=== PATIENT | female | born 1970 | race Two or more races ===

== ENCOUNTER 2024-05-16 16:42 | Emergency (ER) | payer OTHER ==
[~2024-05-16] VITALS: Ht 177.8 cm; Wt 65.3 kg
--- NOTE | 2024-05-16 16:52 | ED.PDOC ---
Noy. trauma (HPI) HPI Comments 53 y.o female presents to the ED for a chief complaint of right sided head pain associated with right eye ecchymosis, right shoulder abrasion, right knee pain s/p fall one day ago. Patient reports feeling dizzy, lost her balance, and fell to the right side. Patient did end up losing consciousness, unknown how long and unknown if there were any witnesses. Patient denies any dizziness now and also denies any blood thinner use. Time Seen by MD: 16:45 Reviewed notes: Nurses Notes, Medications, Allergies Information Source: Patient Mode of Arrival: Ambulatory Severity: Moderate Timing: Days (1) Duration: Since onset Location: Eye, Head Mechanism: Fall Associated signs and symtoms: Other Past Medical History PAST MEDICAL HISTORY: Denies Surgical History: Denies all surgeries FUEL QUALITY TECH History: No Pertinent FUEL QUALITY TECH History Family History Family History: Reviewed,noncontributory to illness Social History Smoker: Non-Smoker Alcohol: Denies ETOH Use Drugs: Denies Drug Use Lives In: Home Constitutional: denies: chills, diaphoresis, fatigue, fever, malaise, sweats, weakness, others EENTM: denies: blurred vision, double vision, ear bleeding, ear discharge, ear drainage, ear pain, ear ringing, eye pain, eye redness, hearing loss, mouth pain, mouth swelling, nasal discharge, nose bleeding, nose congestion, nose pain, photophobia, tearing, throat pain, throat swelling, voice changes, others Respiratory: denies: cough, hemoptysis, orthopnea, SOB at rest, shortness of breath, SOB with excertion, stridor, wheezing, others Cardiovascular: denies: chest pain, dizzy spells, diaphoresis, Dyspnea on exertion, edema, irregular heart beat, left arm pain, lightheadedness, palpitations, PND, syncope, others Gastrointestinal: denies: abdomen distended, abdominal pain, blood streaked bowels, constipated, diarrhea, dysphagia, difficulty swallowing, hematemesis, melena, nausea, poor appetite, poor fluid intake, rectal bleeding, rectal pain, vomiting, others Genitourinary: denies: abnormal vagina bleeding, burning, dyspareunia, dysuria, flank pain, frequency, hematuria, incontinence, pain, , vagina discharge, urgency, others Neurological: reports: headache; denies: dizziness, fainting, left sided numbness, left sided weakness, numbness, paresthesia, pre-existing deficit, right sided numbness, right sided weakness, seizure, speech problems, tingling, tremors, weakness, others Musculoskeletal: denies: back pain, gout, joint pain, joint swelling, muscle pain, muscle stiffness, neck pain, others Integumetry: reports: bruises (right eye ), others (right eye hematoma ); denies: change in color, change in hair/nails, dryness, laceration, lesions, lumps, rash, wounds Allergic/Immunocompromised: denies: Difficulty Healing, Frequent Infections, Hives, Itching, others Hematologic/Lymphatic: denies: anemia, blood clots, easy bleeding, easy bruising, swollen glands, others Endocrine: denies: excessive hunger, excessive sweating, excessive thirst, excessive urination, flushing, intolerance to cold, intolerance to heat, unexplained weight gain, unexplained weight loss, others Psychiatric: denies: anxiety, bipolar disorder, depression, hopeless, panic disorder, schizophrenia, sleepless, suicidal, others All Other Systems: Reviewed and Negative Physical Exam General Appearance: No Apparent Distress, Normal HEENT: Normal ENT Inspection, Pharynx Normal, TMs Normal Neck: Full Range of Motion, Non-Tender, Normal, Normal Inspection Respiratory: Chest Non-Tender, Lungs Clear, No Accessory Muscle Use, No Respiratory Distress, Normal Breath Sounds Cardiovascular: No Edema, No JVD, No Murmur, No Gallop, Normal Peripheral Pulses, Regular Rate/Rhythm Breast Exam: Deferred Gastrointestinal: No Organomegaly, Non Tender, No Pulsatile Mass, Normal Bowel Sounds, Soft Genitalia: Deferred Pelvic: Deferred Rectal: Deferred Extremities: No calf tenderness, Normal capillary refill, Normal inspection, Normal range of motion, Non-tender, No pedal edema Musculoskeletal : Apperance: Normal Neurologic: Alert, electronics engineering technician II-XII nml as Tested, No Motor Deficits, Normal Affect, Normal Mood, No Sensory Deficits Cerebellar Function: Normal Reflexes: Normal Skin: Bruises (periorbital ecchymosis right eye ), Other (right shoulder abrasion ) Lymphatic: No Adenopathy Was a procedure done? Was a procedure done?: No Differential Diagnosis Multiple Trauma: Closed Head Injury, Fractures, Cerebral Contusion, Abrasions, Contusion, Hematoma, Other (syncope, cardiac arrythmias, fractures, intracranial lbleed. intracranial mass, dislocation, sprain, strain) Neck Injury: Cervical Muscle Spasm X-Ray, Labs, Meds, VS Vital Signs Date Time Temp Pulse Resp B/P (MAP) Pulse Ox O2 Delivery O2 Flow Rate FiO2 05/16/24 16:55 73 05/16/24 16:48 97.9 90 16 137/79 (98) 98 Lab Test 05/16/24 18:15 05/16/24 17:26 05/16/24 16:57 Range/Units Urine Color Light-yellow Yellow Urine Clarity Clear Clear Urine pH 5.5 5.0-9.0 Urine Specific [place] 1.023 1.001-1.035 Urine Protein Negative Negative Urine Ketones Negative Negative Urine Blood Negative Negative /uL Urine Nitrite Negative Negative Urine Bilirubin Negative Negative Urine Urobilinogen Normal Negative mg/dL Urine Leukocyte Esterase Negative Negative /uL Urine RBC 1 0 - 4 /hpf Urine WBC <1 0 - 5 /hpf Urine Squamous Epithelial Cells Few <5 /hpf Urine Bacteria Few H None Seen /hpf Urine Mucus Few None Seen Urine Glucose Normal Normal mg/dL White Blood Count 9.2 4.4-10.8 10^3/uL Red Blood Count 4.70 4.0-5.20 10^6/uL Hemoglobin 13.5 12.2-16.2 g/dL Hematocrit 40.5 36.0-46.0 % Mean Corpuscular Volume 86.0 80.0-100.0 fL Mean Corpuscular Hemoglobin 28.8 28.0-32.0 pg Mean Corpuscular Hemoglobin Concent 33.5 32.0-36.0 g/dL Red Cell Distribution Width 13.4 11.8-14.3 % Platelet Count 291 140-450 10^3/uL Mean Platelet Volume 7.5 6.9-10.8 fL Neutrophils (%) (Auto) 54.5 37.0-80.0 % Lymphocytes (%) (Auto) 37.7 10.0-50.0 % Monocytes (%) (Auto) 6.3 0.0-12.0 % Eosinophils (%) (Auto) 1.4 0.0-7.0 % Basophils (%) (Auto) 0.1 0.0-2.0 % Neutrophils # (Auto) 5.0 1.6-8.6 10 ^3/uL Lymphocytes # (Auto) 3.5 0.4-5.4 10 ^3/uL Monocytes # (Auto) 0.6 0-1.3 10 ^3/uL Eosinophils # (Auto) 0.1 0-0.8 10 ^3/uL Basophils # (Auto) 0 0-0.2 10 ^3/uL Nucleated Red Blood Cells 0.0 % Sodium Level 140 136-145 mmol/L Potassium Level 4.2 3.5-5.1 mmol/L Chloride Level 105 98-107 mmol/L Carbon Dioxide Level 27 20-31 mmol/L Anion Gap 8 5-15 Blood Urea Nitrogen 15 9-23 mg/dL Creatinine 0.82 0.550-1.02 mg/dL Glomerular Filtration Rate Calc 86 >90 mL/min BUN/Creatinine Ratio 18.3 10.0-20.0 Serum Glucose 92 74-106 mg/dL Calcium Level 10.3 8.7-10.4 mg/dL Troponin I High Sensitivity < 3 L </=34 ng/L POC Glucose 106 70-106 mg/dl Time of 1ST Reevaluation: 17:30 Reevaluation 1ST: Improved Time of 2ND Reevaluation: 19:09 Reevaluation 2ND: Improved Patient Education/Counseling: Diagnosis, Treatment, Prognosis, Need For Follow Up Family Education/Counseling: No Family Present Additional Information Ordered Test: LAB, EKG, UA, CXR, Right shoulder X ray, and CT Head WO CON Reviewed Result: Lab including Troponin, CBC, BMP Interpreted results: CXR,Cervical/Spine X ray, Right shoulder X ray, and CT Head WO CON- Agreed with radiology Discuss tx/ results: Patient and medical personnel CXR: IMPRESSION: agree with radiology No acute cardiopulmonary disease. Right shoulder X ray: FINDINGS/IMPRESSION: agree with radiology There is no evidence of acute fracture or dislocation. The visualized joint space is well maintained. The alignment is anatomical. There is no radiopaque foreign body. Cervical/Spine X ray: FINDINGS/IMPRESSION: agree with radiology 7 [id number] cervical type vertebra. Normal alignment of the cervical spine. The vertebral body heights are maintained. Limited evaluation of the dens on the odontoid view due to overlying structures. Otherwise, no evidence of acute traumatic fractures or spondylolisthesis. If symptoms persist, consider CT/ MRI for further evaluation. CT Head WO CON agree with radiology IMPRESSION: No acute intracranial findings. Right periorbital soft tissue swelling partially imaged. Please correlate with clinical exam. although pt did not suffer any serious injuries, i am concerned about the cause of the syncope. cardiac arrhythmias being of the most likely differential. i recommended to pt to be admitted, however, pt declined. she is a reliable patient and will follow up with her pcp Departure 1 Departure Time of Disposition: 19:06 Impression: Primary Impression: Syncope Qualified Codes: R55 - Syncope and collapse Additional Impressions: Shoulder contusion Qualified Codes: S40.011A - Contusion of right shoulder, initial encounter Periorbital contusion of right eye Qualified Codes: S05.11XA - Contusion of eyeball and orbital tissues, right eye, initial encounter Scalp contusion Qualified Codes: S00.03XA - Contusion of scalp, initial encounter Disposition: HOME / SELF CARE / HOMELESS Condition: Stable Discharged With: Self Critical Care Note Critical Care Time?: Yes (45 min-critical care time only) Critical care comment: due to the likelihood of patients condition suddenly deteriorating, the care requires my highest level of attention, readiness to intervene. my critical care include assessing and reassessing of patient's condition, response to treatm ents, ordering the appropriate tests, reviewing the results, ordering of treatments, discussing the care with medical personnel and consultants, and formulating a treatment plan, as well a reviewing various medical records. this include at least 50% face-face interaction, and does not include any procedures Stability Stability form required: No I personally scribed for ANGELINA RAMSEY MD ([facility]) on 05/16/24 at 16:52. Electronically submitted by Priya Harden ([employer]). I personally scribed for ANGELINA RAMSEY MD ([facility]) on 05/16/24 at 17:55. Electronically submitted by Priya Harden ([employer]). ANGELINA RAMSEY MD May 16, 2024 16:52
--- NOTE | 2024-05-16 16:57 | ECG ---
[facility] Test Date: 2024-05-16 Test Time: 16:55:13 Pat Name: CHASTITY BRYAN Department: ER Room: Gender: F Machine Icer: CARLOZ : 1970 Requested By: ANGELINA RAMSEY Order Number: [id number] Reading MD: Arcadio Valencia Measurements Intervals [place] Rate: 73 P: 76 GA: 158 QRS: 3 QRSD: 101 T: 35 QT: 365 QTc: 403 Interpretive Statements Sinus rhythm Probable left atrial enlargement RSR' in V1 or V2, right VCD or RVH Baseline wander in lead(s) V1 Electronically Signed On 05-21-2024 16:08:42 PST by Arcadio Valencia Please click the below link to view image of tracing.
--- NOTE | 2024-05-16 17:26 | DVH ---
CT BRAIN WITHOUT CONTRAST HISTORY: injury TECHNIQUE: Axial scans were obtained from the skull base through the vertex without contrast. [place] l and coronal reformats were generated. One or more of the following radiation dose reduction techniq ues were used for this examination: automated exposure control, adjustment of the mA and/or kV accord ing to patient size, use of iterative reconstruction technique. COMPARISON: None FINDINGS: No acute intracranial hemorrhage or evidence of large vessel territorial infarction identified at thi s time. No midline shift. The basilar cisterns are patent. Enrique-white differentiation appears relati vely preserved. Question right periorbital soft tissue swelling partially imaged. The visualized paranasal sinuses an d mastoid air cells are clear. No grossly displaced calvarial fracture is identified. IMPRESSION: No acute intracranial findings. Right periorbital soft tissue swelling partially imaged. Please correlate with clinical exam.
--- NOTE | 2024-05-16 17:35 | DVH ---
CHEST RADIOGRAPH Indication: syncope Technique: Single frontal view of the chest was obtained Comparison: None FINDINGS: Lines and Tubes: None Lungs: No focal consolidation. Pleura: No effusion. No pneumothorax. Cardiomediastinal contours: Unremarkable Bones: No acute osseous abnormality. IMPRESSION: No acute cardiopulmonary disease.
--- NOTE | 2024-05-16 17:36 | DVH ---
CLINICAL INDICATION: injury TECHNIQUE: 3 radiographic views of the right shoulder were obtained. Comparison: None FINDINGS/IMPRESSION: There is no evidence of acute fracture or dislocation. The visualized joint space is well maintained. The alignment is anatomical. There is no radiopaque foreign body.
--- NOTE | 2024-05-16 17:40 | DVH ---
CLINICAL INDICATION: injury TECHNIQUE: 3 radiographic views of the cervical spine were obtained. Comparison: None FINDINGS/IMPRESSION: 7 [id number] cervical type vertebra. Normal alignment of the cervical spine. The vertebral bod y heights are maintained. Limited evaluation of the dens on the odontoid view due to overlying struc tures. Otherwise, no evidence of acute traumatic fractures or spondylolisthesis. If symptoms persis t, consider CT/ MRI for further evaluation.
[2024-05-16 18:21] LABS: Basophils # (auto) 0 10 ^3/uL (0-0.2); Basophils % (auto) 0.1 % (0.0-2.0); Eosinophils # (auto) 0.1 10 ^3/uL (0-0.8); Eosinophils % (auto) 1.4 % (0.0-7.0); Hematocrit 40.5 % (36.0-46.0); Hemoglobin 13.5 g/dL (12.2-16.2); Lymphocytes # (auto) 3.5 10 ^3/uL (0.4-5.4); Lymphocytes % (auto) 37.7 % (10.0-50.0); Mean Corpuscular Hemoglobin 28.8 pg (28.0-32.0); Mean Corpuscular Hgb Conc. 33.5 g/dL (32.0-36.0); Monocytes # (auto) 0.6 10 ^3/uL (0-1.3); Monocytes % (auto) 6.3 % (0.0-12.0); Neutrophils % (auto) 54.5 % (37.0-80.0); Platelet Count (auto) 291 10^3/uL (140-450); Red Cell Distribution Width 13.4 % (11.8-14.3); White Blood Cell 9.2 10^3/uL (4.4-10.8)
[2024-05-16 18:25] LABS: Urine Bacteria FEW /hpf (None Seen); Urine Blood Negative /uL (Negative); Urine Clarity Clear (Clear); Urine Color Light-Yellow (Yellow); Urine Mucus FEW (None Seen); Urine Protein, UAD Negative (Negative); Urine Specific Gravity 1.023 (1.001-1.035); Urine Urobilinogen Normal (Negative); Urine WBC <1 /hpf (0 - 5); Urine pH 5.5 (5.0-9.0)
[2024-05-16 18:35] LABS: Chloride 105 mmol/L (98-107); Potassium 4.2 mmol/L (3.5-5.1); Sodium 140 mmol/L (136-145)
[2024-05-16 18:36] LABS: Anion Gap 8 (5-15); Carbon Dioxide 27 mmol/L (20-31)
[2024-05-16 18:37] LABS: Calcium 10.3 mg/dL (8.7-10.4)
[2024-05-16 18:41] LABS: Glucose 92 mg/dL (74-106)
[2024-05-16 18:42] LABS: BUN/Creatinine Ratio 18.3 (10.0-20.0); Blood Urea Nitrogen 15 mg/dL (9-23)
[2024-05-16 19:33] VITALS: BP 124/82; PULSE 69; RESP 13; TEMP 98.4; O2SAT 99
== END 2024-05-16 19:39 | disposition home or self-care (01) ==
LOC: ER 16:42
DX: S40.011A Contusion of right shoulder, initial encounter (principal); S05.11XA Contusion of eyeball and orbital tissues, right eye, initial encounter; W01.0XXA Fall on same level from slipping, tripping and stumbling without subsequent striking against object, initial encounter; Y93.89 Activity, other specified; Y92.89 Other specified places as the place of occurrence of the external cause; Y99.8 Other external cause status
CPT/HCPCS: 36415; 70450; 71045; 72040; 73030; 80048; 81001; 82962; 84484; 85025; 93005